=== PATIENT | female | born 1995 | race Caucasian/White ===

== ENCOUNTER 2022-10-04 02:57 | Emergency (ER) | payer MEDICAID ==
[~2022-10-04] VITALS: Ht 144.8 cm; Wt 66.2 kg
[2022-10-04 03:10] VITALS: BP_SYST 122
--- NOTE | 2022-10-04 03:15 | NUR ---
Patient ambulated to room 5 & connected to with CC sharp intermitten CP radiating to middle of back x 1-1.5 months. Patient changed into gown and side rails up.
--- NOTE | 2022-10-04 03:27 | NUR ---
Dr. Smith at bedside for evaluation.
[2022-10-04] MEDS ORDERED: KETOROLAC TROMETHAMINE 15 MG VIAL IM ONE (03:30)
--- NOTE | 2022-10-04 04:25 | NUR ---
Dr. Nayak bedside discussing labs, diagnostics & Tx plan. MD will discharge patient home.
[2022-10-04] MEDS ORDERED: IBUP-1969 PO (04:28)
[2022-10-04] MEDS ORDERED: VIS25 PO (04:28)
[2022-10-04 04:45] VITALS: BP_SYST 104
--- NOTE | 2022-10-04 04:45 | NUR ---
DCI & Rx given to patient. Patient acknowledges & understand DCI & Rx. Patient ambulated OTD in stable condition with boyfriend.
== END 2022-10-04 04:45 | disposition home or self-care (01) ==
LOC: SED 02:57
DX: R07.89 Other chest pain (principal); R06.02 Shortness of breath; Z91.018 Allergy to other foods; Z79.899 Other long term (current) drug therapy
CPT/HCPCS: 99283; 71045; 93005; 81025; 96372; J1885